=== PATIENT | male | born 1995 | race Caucasian/White ===

== ENCOUNTER 2016-09-15 13:51 | Emergency (ER) | payer BC ==
[~2016-09-15] VITALS: Ht 190.5 cm; Wt 104.3 kg
[~2016-09-15 13:51] MED LIST: AUGMENTIN 875-1 EACH PO; MEDROL 4MG. DOSE4 MG PO
--- NOTE | 2016-09-15 14:36 | Urgent Treatment Center Report ---
See Addendum History of Present Issue Date/Time Seen by Provider 09/15/16 1409 Visit Reason Pt arrived:Walked Presenting Problem:PT C/O RIGHT ANKLE PAIN. PT REPORTS A PAST ANKLE INJURY Location if Accident: Onset of symptoms date/time:/ or onset unknown for:MEDICAL HX UNKNOWN Have you (or family members/close friends) recently traveled outside the [place]? N If Yes, where/when: Have you had exposure to infectious disease within the past month? TB? Other? Specify: Patient states that he has had a previous injury to this ankle states that he was walking and the foot just gave out. State that he has been having pain in the ankle ever since so he started using as crutch to help get the weight off of foot and then came in here to get checked ALLERGIES Coded Allergies: No Known Allergies (02/06/16) Home Medications Active Scripts Methylprednisolone (Medrol Dose Sascha) 4 MG PO UD #1 SASCHA Prov: 02/06/16 Amoxicillin/Potassium Clav (Augmentin 875-125 Tablet) 1 EACH PO BID #20 TAB Prov: 02/06/16 History Medical History General CAD? No Angina: No [place]: No Hypertension? No Hyperlipidemia? No CHF? No DVT? No PE? No COPD? No Asthma? No Anemia? No GERD? No Gastric ulcers? No GI Bleed? No Hernia? No Thyroid Problems? No Hypothyroidism? No CVA? No Seizures? No Diabetes? No Renal Insuffiency? No UTI? No Stones? No BPH? No GB Disease: No Nephritic Syndrome? No Asplenia? No Hepatitis? No Sickle Cell Disease? No Arthritis? No Migraines? No Cataracts? No Glaucoma? No MRSA? No HIV? No TB? No Anxiety? No Depression? No Cancer? No More? No Immunization HX DT/Tetanus Unknown Surgical Hx Previous Surgery?N Social History Smoking Hx Smoker: Never Smoker Tobacco: No Alcohol Alcohol: No Review of Systems All Other Systems Reviewed and Negative Physical Exam Vital Signs Vital Signs Date Time Temp Pulse Resp B/P Pulse O2 O2 Flow FiO2 Ox Delivery Rate 09/15 1406 98.7 78 20 146/100 98 General Appearance normal appearance, WD/WN, no apparent distress, mild distress Respiratory Status Yes: trachea midline, chest symmetrical, non tender chest. No: respiratory distress. 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 No Results/Orders Orders Procedure Date/time Status UTC STABILIZE JOINT/AREA 09/15 1438 Active Departure Departure Disposition DC Home or Self Care(routine) Clinical Impression Primary Impression: Ankle pain Qualifiers: Laterality: right Chronicity: acute Qualified Code: M25.571 - Pain in right ankle and joints of right foot Condition STABLE Referrals Alonzo Rendon MD: Tomorrow-Call Office for appointment for foot/ankle pain ALESHIA ROBBINS, CHELSEA NAVARRETE: Tomorrow-Call Office For appointment for foot/ankle pain Patient Instructions DI for Foot Pain Additional Instructions *RICE, Rest the extremity, Ice 15-20 minutes 3-4 times daily, Compress- wear the sorin wrap as discussed as much as possible to help reduce swelling and pain, Elevate the extremity when at rest *Sorin wrap is for support and help control swelling, use it except in the shower. Be sure that is not to tight but not to loose either *Elevate when resting *Ibuprofen every 6-8 hours as needed for pain an inflammation. If need something more can take Tylenol in between doses of Ibuprofen to help Immediately follow up for new or worsening of symptoms, or no noticeable improvement over the next 3-5 days Discharge Counseling Counseled pt/family regarding diagnosis, test results, medications/RX, home care at 1440
--- NOTE | 2016-09-15 14:37 | RADIOLOGY REPORT PS360 ---
ANKLE-RT-3 VIEWS HISTORY: Right ankle pain PAIN; OLD [employer]ORTS INJURY ORDERING PHYSICIAN: SELVIN LEUNG APRN PATIENT AGE: 20 years COMPARISON: 08/02/2015 FINDINGS: No fracture or dislocation. No lytic or blastic change. There is normal mineralization.. The joint spaces are well-preserved. No significant degenerative/arthritic changes. No erosive changes evident. IMPRESSION: Negative right ankle, no acute finding
[2016-09-15 14:44] VITALS: BP 146/100
--- OUTSIDE RECORDS SUMMARY | 2016-09-22 02:57 | External Medical Summary Rpt ---
Author Author [employer] Organization [employer] Address Unknown Phone Unavailable Purpose Continuity of Care Document - through 2016
--- OUTSIDE RECORDS SUMMARY | 2016-09-22 02:57 | External Medical Summary Rpt ---
Author Author , Organization [employer] Address Unknown Phone Unavailable Purpose Continuity of Care Document - through 2016 Problems Code Diagnosis DOS Provider Status M70.20 OLECRANON BURSITIS, UNSPECIFIED ELBOW
--- OUTSIDE RECORDS SUMMARY | 2016-09-22 02:57 | External Medical Summary Rpt ---
Author Author ANGEL Avery, ANGEL [employer] Organization [employer] Address Unknown Phone Unavailable
--- OUTSIDE RECORDS SUMMARY | 2016-09-22 02:57 | External Medical Summary Rpt ---
Author Author , Organization [employer] Address Unknown Phone Unavailable Purpose Continuity of Care Document - 11-29-1998 through 2016 Immunization Name Date Route CVX Reacti Commen Provid Is Given on t er Refuse d Influe Histor KHAFAG No nza2016 ical I P-Free Inform AYMAN ation - Source Unspec ified Td Histor H109 No (adult 2005 ical ), Inform adsorb ation ed - Source Unspec ified Hep B, Histor H109 No 1999 ical ped/ad Inform ol ation - Source Unspec ified Hep B, Histor H109 No adol 1998 ical High Inform Ris ation - Source Unspec ified Hep B, Histor H109 No adol 1998 ical High Inform Ris ation - Source Unspec ified MMR 3 Histor H109 No 1998 uscula ical r Inform ation - Source Unspec ified
== END 2016-09-15 14:48 | disposition home or self-care (01) ==
LOC: UTC 13:51
DX: M25.571 Pain in right ankle and joints of right foot (principal)

== ENCOUNTER 2017-03-03 15:24 | Emergency (ER) | payer BC ==
[~2017-03-03] VITALS: Ht 190.5 cm; Wt 99.8 kg
--- OUTSIDE RECORDS SUMMARY | 2017-03-03 15:30 | External Medical Summary Rpt | CCD ---
Author Author ANGEL Address Unknown Phone Purpose Continuity of Care Document - through 2016
--- OUTSIDE RECORDS SUMMARY | 2017-03-03 15:30 | External Medical Summary Rpt | CCD ---
Author Author , ANGEL Organization [employer] Address Unknown Phone [email or web address] Immunization Name Date Rout CVX Reac Dose Comm Prov Is Faci e tion ent ider Refu lity Give sed n Infl 02-0 140 0.5 Hist KHAF No RITE uenz 6-20 mL oric JOSE DAVID AID0 a, 17 al AYMA 3938 P-Fr Info N ee rmat ion - Sour ce Unsp ecif ied Td 07-2 9 999 Hist H109 No H109 (magaly 0-20 oric lt), 06 al Info adso rmat rbed ion - Sour ce Unsp ecif ied Hep 02-1 8 999 Hist H109 No H109 B, 4-20 oric ped/ 00 al adol Info rmat ion - Sour ce Unsp ecif ied Hep 09-1 42 999 Hist H109 No H109 B, 3-19 oric adol 99 al Info High rmat Ris ion - Sour ce Unsp ecif ied Hep 08-0 42 999 Hist H109 No H109 B, 6-19 oric adol 99 al Info High rmat Ris ion - Sour ce Unsp ecif ied MMR 08-0 Intr 3 999 Hist H109 No H109 6-19 amus oric 99 cula al r Info rmat ion - Sour ce Unsp ecif ied
--- OUTSIDE RECORDS SUMMARY | 2017-03-03 15:30 | External Medical Summary Rpt | CCD ---
Author Author , ANGEL Organization [employer] Address Unknown Phone [email or web address] Immunization Name Date Rout CVX Reac Dose [...]
[2017-03-03] MEDS ORDERED: OMNICEF 300 MG300 MG PO (15:51)
--- NOTE | 2017-03-03 15:52 | Urgent Treatment Center Report ---
History of Present Issue Date/Time Seen by Provider 03/03/17 1543 Visit Reason Pt arrived:Walked Presenting Problem:SORE THROAT X2 DAYS Location if Accident: Onset of symptoms date/time:/ or onset unknown for:MEDICAL HX UNKNOWN Have you (or family members/close friends) recently traveled outside the [place]? N If Yes, where/when: Have you had exposure to infectious disease within the past month? TB? Other? Specify: Patient state that he has not been feeling well for several days State that he has had sore throat for 2 days now that has continued to get worse State that his throat if very sore and hurts when he swallows today he noticed that he had some white patches on his left tonsil and thought he better come in and get checked for strep throat ALLERGIES Coded Allergies: No Known Allergies (02/06/16) Home Medications Active Scripts Methylprednisolone (Medrol Dose Sascha) 4 MG PO UD #1 SASCHA Prov: 02/06/16 Amoxicillin/Potassium Clav (Augmentin 875-125 Tablet) 1 EACH PO BID #20 TAB Prov: 02/06/16 History Medical History General CAD? No Angina: No [place]: No Hypertension? No Hyperlipidemia? No CHF? No DVT? No PE? No COPD? No Asthma? No Anemia? No GERD? No Gastric ulcers? No GI Bleed? No Hernia? No Thyroid Problems? No Hypothyroidism? No CVA? No Seizures? No Diabetes? No Renal Insuffiency? No UTI? No Stones? No BPH? No GB Disease: No Nephritic Syndrome? No Asplenia? No Hepatitis? No Sickle Cell Disease? No Arthritis? No Migraines? No Cataracts? No Glaucoma? No MRSA? No HIV? No TB? No Anxiety? No Depression? No Cancer? No More? No Immunization HX DT/Tetanus Unknown Surgical Hx Previous Surgery?N Social History Smoking Hx Smoker: Current Every Day Smoker Tobacco: No Alcohol Alcohol: No Review of Systems All Other Systems Reviewed and Negative ENT throat pain, throat swelling. Physical Exam Vital Signs Vital Signs Date Time Temp Pulse Resp B/P Pulse O2 O2 Flow FiO2 Ox Delivery Rate 03/03 1532 98.0 129 18 180/93 99 General Appearance normal appearance, WD/WN, no apparent distress Ear, Nose, Throat tonsillar exudate, tonsillar swelling Respiratory Status Yes: trachea midline, chest symmetrical, non tender chest. No: respiratory distress. Cardiovascular normal exam, regular rate/rhythm Neurologic alert, normal exam, oriented x 3 Medical Decision Making LABS/Meds/Orders Pt receiving controlled substance in ED? No Results/Orders Laboratory Tests 03/03/17 1538: Group A Strep Screen NOT DETECTED Orders Procedure Date/time Status [facility] STREP SCREEN 03/03 1538 Complete Progress [facility] Progress Notes Comment Patient strep test negative however patient symptoms and presentation indicates strep throat along with exudate noted on tonsils Departure Departure Time of Disposition 1550 Disposition DC Home or Self Care(routine) Clinical Impression Primary Impression: Upper respiratory infection Qualifiers: URI type: acute tonsillitis Pharyngitis/tonsillitis etiology: unspecified etiology Qualified Code: J03.90 - Acute tonsillitis, unspecified Condition STABLE Referrals Sina ROBBINS,Aleks (Family): 3 Days-Call Office if no improvement Patient Instructions Sore Throat Additional Instructions * Monitor Temp. Tylenol and/or Ibuprofen as needed. ER if fever is no less than 101 despite alternating Tylenol and Ibuprofen * Encourage fluids, water, Gatorade, powerade, pedialyte if /toddler/or child * Warm salt water gargles for throat irritation *Warm fluids *Sore throat lozenges *Sleep elevated *humidifier or vaporizer Lots of rest Increase fluids, water, Gatorade, powerade *Your throat swab was sent to lab for culture. Those results area typically sent to your primary care physician. Be sure to follow up in 2-3 days if no improvement so they can review those results and treat if necessary If you dont have primary care I recommend you get one, but in the mean time you will have to return to a walk in clinic Follow up IMMEDIATELY for new or worsening of symptoms OR no noticeable improvement over the next 48-72 hours. 911 immediately for any life threatening symptoms such as chest pain or difficulty breathing Discharge Counseling Counseled pt/family regarding diagnosis, test results, medications/RX, home care, follow up needs Prescriptions Current Visit Scripts CEFDINIR (Cefdinir) 300 MG PO BID #20 CAP 1 capsule twice daily for 10 days at 1551
[2017-03-03 16:02] VITALS: BP 180/75
== END 2017-03-03 16:03 | disposition home or self-care (01) ==
LOC: UTC 15:24
DX: J03.90 Acute tonsillitis, unspecified (principal); F17.210 Nicotine dependence, cigarettes, uncomplicated

== ENCOUNTER 2017-03-05 19:53 | Emergency (ER) | payer BC ==
[~2017-03-05] VITALS: Ht 190.5 cm; Wt 104.3 kg
[~2017-03-05 19:53] MED LIST changes: +OMNICEF 300 MG300 MG PO
--- OUTSIDE RECORDS SUMMARY | 2017-03-05 20:19 | External Medical Summary Rpt ---
Author Author ANGEL Avery, [employer] Organization [employer] Address Unknown Phone Unavailable Results Streptococcus pyogenes Ag [Presence] in Unspecified specimen Observa Value Referen Units Interpr Notes Date tion ce etation Range Strepto NOT NOTDETE No No LOT # Nov 8 coccus DETECTE CTED informa informa @[id number] pyogene D tion in tion in 2 EXP 3:38 PM s Ag source source DATE [Presen data data @ ce] in 12-27 Unspeci fied specime n
--- OUTSIDE RECORDS SUMMARY | 2017-03-05 20:19 | External Medical Summary Rpt ---
Author Author ANGEL Avery, [employer] Organization [employer] Address Unknown Phone Unavailable Results Streptococcus pyogenes Ag [Presence] in Unspecified specimen Observa Value Referen Units Interpr Notes Date tion ce etation Range Strepto NOT NOTDETE No No LOT # Nov 8 coccus DETECTE CTED informa informa @[id number] pyogene D tion in tion in 2 EXP 3:38 PM s Ag source source DATE [Presen data data @ ce] in 12-27 Unspeci fied specime n
--- OUTSIDE RECORDS SUMMARY | 2017-03-05 20:19 | External Medical Summary Rpt | CCD ---
Author Author , ANGEL ORTIZ Address Unknown Phone [email or web address] Purpose Continuity of Care Document - 03-03-2017 through 2016 Problems Code Diagnosis DOS Provider Status M70.20 OLECRANON BURSITIS, UNSPECIFIED ELBOW Results Labs Lab Lab Date Result Refere Interp Status Commen Order Detail nces retati t Range on Screening group A Streptococcus antigen (03-03-2017 15:38) Screeni NOT NOTDETE complet ng 0[address] ed group A 15:38 D NOT DETECTE Strepto D L coccus antigen Comment: LOT # @[id number] EXP DATE @2018-12-27 Streptococcus pyogenes Ag [Presence] in Unspecified specimen (03-03-2017 15:38) Strepto NOT NOTDETE complet coccus [address] pyogene 15:38 D s Ag [Presen ce] in Unspeci fied specime n
--- OUTSIDE RECORDS SUMMARY | 2017-03-05 20:19 | External Medical Summary Rpt | CCD ---
Author Author , ANGEL Organization [employer] Address Unknown Phone [email or web address] Immunization Name Date Rout CVX Reac Dose [...]
--- OUTSIDE RECORDS SUMMARY | 2017-03-05 20:19 | External Medical Summary Rpt | CCD ---
Author Author , ANGEL ORTIZ Address Unknown Phone [email or web address] Purpose Continuity of Care Document - 03-03-2017 [...] D L coccus antigen Comment: LOT # @[id number] EXP DATE @2018-12-27 Streptococcus pyogenes Ag [Presence] in Unspecified specimen (03-03-2017 15:38) Strepto NOT NOTDETE complet coccus [address] pyogene 15:38 D s Ag [Presen ce] in Unspeci fied specime n
--- OUTSIDE RECORDS SUMMARY | 2017-03-05 20:19 | External Medical Summary Rpt | CCD ---
Author Author , ANGEL Organization [employer] Address Unknown Phone [email or web address] Immunization Name Date Rout CVX Reac Dose [...]
--- NOTE | 2017-03-05 20:21 | Emergency Room Report ---
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 Y Clinical Suspician of Infection? N Mental Status: 1 - Regular (Normal Baseline) Sepsis Risk:Severe Sepsis Risk Have you (or family members/close friends) recently traveled outside the [place]? N If Yes, where/when: Have you had exposure to infectious disease within the past month? N TB? Other? Specify: Source patient, RN notes reviewed, family, old records Exam Limitations no limitations Comment pt with fever and sore throat with no cough or rash - pt was seen in [facility] and placed on abx a couple of days ago- pt with persistant sx with fever and posey Cardiac Chest Pain Chest pain indicative of cardiac No Timing/Duration this evening Severity moderate ALLERGIES Coded Allergies: No Known Allergies (02/06/16) Home Medications Active Scripts Methylprednisolone (Medrol Dose Sascha) 4 MG PO UD #1 SASCHA Prov: 02/06/16 Amoxicillin/Potassium Clav (Augmentin 875-125 Tablet) 1 EACH PO BID #20 TAB Prov: 02/06/16 History Medical History General CAD? No Angina: No [place]: No Hypertension? No Hyperlipidemia? No CHF? No DVT? No PE? No COPD? No Asthma? No Anemia? No GERD? No Gastric ulcers? No GI Bleed? No Hernia? No Thyroid Problems? No Hypothyroidism? No CVA? No Seizures? No Diabetes? No Renal Insuffiency? No End Stage Renal Disease? No UTI? No Stones? No BPH? No GB Disease: No Nephritic Syndrome? No Asplenia? No Hepatitis? No Sickle Cell Disease? No Arthritis? No Migraines? No Cataracts? No Glaucoma? No MRSA? No HIV? No TB? No Anxiety? No Depression? No Cancer? No More? No Immunization Hx Ped.Immunizations UTD Yes DT/Tetanus Unknown Surgical Hx Previous Surgery?N Social History Smoking Hx Smoker: Never Smoker Tobacco: No Alcohol Alcohol: No Drugs none Review of Systems All Other Systems Reviewed and Negative Constitutional see HPI, fever Eyes denies drainage ENT denies: ear discharge, epistaxis, throat pain. Respiratory denies cough, denies shortness of breath, denies wheezing Cardiovascular denies chest pain, denies syncope Gastrointestinal denies abdominal pain, denies diarrhea, denies vomiting Genitourinary denies: dysuria, frequency, hesitancy, hematuria. Musculoskeletal denies back pain, denies joint pain, denies neck pain Skin denies rash Psychiatric/Neurological see HPI, headache, denies seizure Physical Exam Vital Signs Vital Signs Date Time Temp Pulse Resp B/P Pulse O2 O2 Flow FiO2 Ox Delivery Rate 03/05 2059 20 03/05 2000 99.8 122 24 146/88 97 - WBC >12,000 or <4,000 or 10% bands? 2 or more SIRS Criteria Met? B/P:146/88 MAP:107 Creatinine >2.0? UA output<0.5ml/kg/hr for 2 hrs? Platelet count >100,000? Lactate >2.0mmol/1? INR >1.2 or PTT > than 60 sec? Evidence of Organ Dysfunction? Provider documented clinical suspician of infection? N Sepsis Criteria Count: 3 Sepsis Risk: Severe Sepsis Risk General Appearance no apparent distress Eye Exam - bilateral eye PERRL, bilateral eye EOMI Ear, Nose, Throat tonsillar exudate, tonsillar swelling Neck supple Respiratory Status No: respiratory distress. Lung Sounds bilateral: lungs clear. 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 No Results/Orders Laboratory Tests 03/05/17 2015: Sodium 136, Potassium 3.4 L, Chloride 99, Carbon Dioxide 28, BUN 11, Creatinine 0.9, Estimated Creat Clear 188, Estimated GFR (MDRD) 105, Glucose 115 H, Calcium 9.0, Total Bilirubin 0.6, AST 18, ALT 26, Alkaline Phosphatase 87, Total Protein 8.0, Albumin 3.7, Globulin 4.3 H, Albumin/Globulin Ratio 0.9 L, WBC 9.6, RBC 4.87, Hgb 13.9 L, Hct 40.4 L, MCV 83.1, RDW 12.2, Plt Count 236, MPV 7.2 L, Gran % 78.3, Gran # 7.5, Lymphocytes % 14.8, Monocytes % 5.2, Eosinophils % 1.3, Basophils % 0.4, Lymphocytes # 1.4, Monocytes # 0.5, Eosinophils # 0.1, Basophils # 0.0, PUBS MCHC 34.4, MCH 28.6, Monoscreen NEGATIVE Current Medication Orders Sig/Heidi Start time Last Medication Dose Route Stop Time Status Admin Acetaminophen 650 MG ONCE ONE 03/05 2200 AC PO 03/05 2201 Acetaminophen/ 1 SASCHA ONCE ONE 03/05 2200 AC Codeine Phosphate PO 03/05 2201 Ibuprofen 800 MG ONCE ONE 03/05 2200 AC PO 03/05 2201 Ceftriaxone Sodium 1 GM ONCE ONE 03/05 2100 DC 03/05 Sodium Chloride 50 ML IV 03/05 Ketorolac 30 MG ONCE ONE 03/05 2100 DC 03/05 Tromethamine IV 03/05 Methylprednisolone 125 MG ONCE ONE 03/05 2100 DC 03/05 Sodium Succinate IV 03/05 Ceftriaxone Sodium 0 .STK-MED ONE 03/05 2056 DC IV Methylprednisolone 0 .STK-MED ONE 03/05 2056 DC Sodium Succinate .ROUTE Sodium Chloride 50 ML .STK-MED ONE 03/05 2056 DC IV Ketorolac 0 .STK-MED ONE 03/05 2055 DC Tromethamine .ROUTE Sodium Chloride 10 ML PRN PRN 03/05 2030 AC IV 03/06 2025 Sodium Chloride 1,000 ML .Q1H1M 03/05 2030 DC 03/05 IV 03/05 Sodium Chloride 10 ML PRN PRN 03/05 2030 AC IV 03/06 2025 Sodium Chloride 1,000 ML .STK-MED ONE 03/05 2030 DC IV Orders Procedure Date/time Status IV SALINE LOCK 03/05 2025 Active CULTURE, BLOOD 03/05 2025 Active MONO SCREEN 03/05 2025 Complete COMPLETE METABOLIC PANEL 03/05 2025 Complete CBC WITH AUTO DIFF 03/05 2025 Complete Departure Departure Time of Disposition 2145 Disposition Still a Patient Clinical Impression Primary Impression: Pharyngitis Qualifiers: Pharyngitis/tonsillitis etiology: unspecified etiology Qualified Code: J02.9 - Acute pharyngitis, unspecified Condition STABLE Referrals Aleks Art MD (Family) discussed with dr art Patient Instructions DI for Pharyngitis/Tonsillopharyngitis -- Adult Additional Instructions fluids and use advil/tyenol and see pcp at 0930 in am Discharge Counseling Counseled pt/family regarding diagnosis, test results, medications/RX, follow up needs ED Critical Care Critical Care No at 2150
[2017-03-05 20:38] LABS: HEMOGLOBIN 13.9 g/dL (14.1-18.0); LYMPH # 1.4 K/mm3 (0.7-4.5); LYMPH % 14.8 % (10-50)
[2017-03-05 22:53] VITALS: BP 135/71
[2017-03-06] MEDS ORDERED: CEFDINIR300 MG PO (10:31)
== END 2017-03-05 23:48 | disposition still patient (30) ==
LOC: ER 19:53
PROVIDERS: Emergency Medicine
DX: J02.9 Acute pharyngitis, unspecified (principal)

== ENCOUNTER 2017-03-06 09:59 | Observation (INO) | payer BC ==
[~2017-03-06] VITALS: Ht 190.5 cm; Wt 116.6 kg
--- OUTSIDE RECORDS SUMMARY | 2017-03-06 10:01 | External Medical Summary Rpt | CCD ---
Author Author ANGEL Address Unknown Phone [email or web address] Purpose Continuity of Care Document - 03-03-2017 [...] D L coccus antigen Comment: LOT # @[id number] EXP DATE @2018-12-27
--- OUTSIDE RECORDS SUMMARY | 2017-03-06 10:01 | External Medical Summary Rpt | CCD ---
Author Author NAGEL Address Unknown Phone [email or web address] Purpose Continuity of Care Document - 03-03-2017 [...] D L coccus antigen Comment: LOT # @[id number] EXP DATE @2018-12-27
--- OUTSIDE RECORDS SUMMARY | 2017-03-06 10:02 | External Medical Summary Rpt | CCD ---
Demographics Preferred Language Palestinian Marital Status Unknown Baptist Affiliation Unknown Race Unknown Ethnic Group Unknown Author Author , ANGEL ORTIZ Address Unknown Phone Immunization Unable to retrieve immunization data due to connection failure with Immunization Registry. Please try again later.
--- OUTSIDE RECORDS SUMMARY | 2017-03-06 10:02 | External Medical Summary Rpt | CCD ---
Demographics Preferred Language Northern Irish Marital Status Unknown Muslim Affiliation Unknown Race Unknown Ethnic Group Unknown Author Author , ANGEL ORTIZ Address Unknown Phone Immunization Unable to retrieve immunization data due to connection failure with Immunization Registry. Please try again later.
[2017-03-06 10:31] VITALS: BP 131/87
[2017-03-06] MEDS ORDERED: CEFDINIR300 MG PO (10:31)
--- NOTE | 2017-03-06 12:19 | RADIOLOGY REPORT PS360 ---
CT HEAD-W/WO CONTRAST INDICATION: Severe headache, fever, HEADACHE X 6 DAYS FEVER ORDERING PHYSICIAN: Aleks Andino MD PATIENT AGE: 21 years COMPARISON: None TECHNIQUE: Axial images are obtained following the intravenous administration 100 mL's of Isovue 300. FINDINGS: No midline shift, mass effect, intracranial hemorrhage, hydrocephalus, or enhancing lesion evident. No intra or extra-axial mass. No large area of cortical infarction. Normal mckenzie-white matter differentiation. No acute calvarial abnormality. No sinus air-fluid level or mastoid effusion. IMPRESSION: Negative CT head without and with contrast. No acute intracranial findings.
--- NOTE | 2017-03-06 12:21 | RADIOLOGY REPORT PS360 ---
CHEST(2 VIEWS-NOT PORTABLE) HISTORY: fever ORDERING PHYSICIAN: Aleks Andino MD PATIENT AGE: 21 years COMPARISON: None available FINDINGS: The cardiomediastinal silhouette and pulmonary vascularity are within normal limits. Increased markings are present in both lung bases consistent with bibasilar atelectatic change. There is increased density in the infrahilar region on the lateral view likely in the right lower lobe consistent with pneumonia. Upper lobes are clear. No effusions. No acute bony anomalies. IMPRESSION: Bibasilar atelectatic change with suspected pneumonia in the right lung base medially. Recommend follow until clear.
[2017-03-06 12:34] LABS: HEMOGLOBIN 12.8 g/dL (14.1-18.0); LYMPH # 1.5 K/mm3 (0.7-4.5); LYMPH % 12.1 % (10-50)
[2017-03-06 12:44] LABS: CORONAVIRUS 229E NOT DETECTED (NOT DETECTE); CORONAVIRUS HKU 1 NOT DETECTED (NOT DETECTE); CORONAVIRUS NL63 NOT DETECTED (NOT DETECTE); CORONAVIRUS OC43 NOT DETECTED (NOT DETECTE); RHINOVIRUS/ENTEROVIRUS NOT DETECTED (NOT DETECTE)
[2017-03-06 15:30] VITALS: BP 161/82
[2017-03-06 16:55] VITALS: BP 161/82
[2017-03-06 17:11] LABS: URINE BILIRUBIN - DIPSTICK NEGATIVE (NEG); URINE BLOOD NEGATIVE (NEG)
--- NOTE | 2017-03-06 19:41 | HISTORY AND PHYSICAL REPORT ---
Demographics: Admit date: 03/06/17 Chief complaint: Fever with sore throat PRIMARY DIAGNOSIS: HEADACHE AND SORE THROAT Allergies: Coded Allergies: No Known Allergies (02/06/16) History of present illness: History of present illness: 21-year-old white male, otherwise healthy who over the past couple of days has been afflicted with a sore throat, fever and a headache. Went to urgent treatment center where rapid strep test was negative but because "his throat looked bad" was started on amoxicillin. Failed to improve and came back to the emergency department yesterday, given intravenous ceftriaxone, fluids and a dose of Solu-Medrol and felt much better and was discharged. Came back for follow-up with me this morning, temperature 101.1 degrees Fahrenheit, noted to have shotty lymphadenitis, tachycardia and evidence of dehydration, admitted to hospital given failed outpatient therapy for infectious pharyngitis and further workup. Other complaints include a headache in the frontal area, denied neck stiffness, rash, confusion or disorientation. Past medical history: Family HX Family Hx Insignificant Yes Immunization HX DT/Tetanus Unknown Flu 2015-FSN Pneumonia Never Had TB Test in last year No General CAD? No Angina: No [place]: No Hypertension? No Hyperlipidemia? No CHF? No DVT? No PE? No COPD? No Asthma? No Anemia? No GERD? No Gastric ulcers? No GI Bleed? No Hernia? No Thyroid Problems? No Hypothyroidism? No CVA? No Seizures? No Diabetes? No Renal Insuffiency? No UTI? No Stones? No BPH? No GB Disease: No Nephritic Syndrome? No Asplenia? No Hepatitis? No Sickle Cell Disease? No Arthritis? No Migraines? No Cataracts? No Glaucoma? No MRSA? No HIV? No TB? No Anxiety? No Depression? No Cancer? No More? No Past Surgical HX Previous Surgery?N Current home meds: Reported Medications Cefdinir 300 MG PO BID Social Hx: Smoking HX Are you/the child exposed to second-hand smoke: No Alcohol Alcohol: No Hx of Drug Use Drug Use? No Patien't marital status is single Patient's support system is good Comment: Lives with girlfriend Review of systems: Constitutional fever, malaise, weakness. Respiratory No: no symptoms reported. Cardiovascular No no symptoms reported Gastrointestinal/Abdominal nausea, poor appetite, poor fluid intake Genitourinary No: no symptoms reported. Musculoskeletal No: gout, joint pain, joint swelling, muscle pain, muscle stiffness, neck pain. Skin No: rash. Neurological Yes: headache. No: numbness, tingling, tremors, weakness, parasthesia. Exam: Lab data for last 24 hours: Laboratory Tests 03/06/17 1230: Chlamy pneum (TEM-PCR) NOT DETECTED, Adenovirus (PCR) NOT DETECTED, B. pertussis DNA (PCR) NOT DETECTED, Coronavirus OC43 (PCR) NOT DETECTED, Coronavirus HKU1 ( PCR) NOT DETECTED, Coronavirus 229E (PCR) NOT DETECTED, Coronavirus NL63 (PCR) NOT DETECTED, Human Metapneumovir PCR NOT DETECTED, Influenza A (H1) PCR NOT DETECTED, Influ A (H1N1/09) PCR NOT DETECTED, Influenza A (H3) PCR NOT DETECTED, Influenza Type A (PCR) NOT DETECTED, Influenza Type B (PCR) NOT DETECTED, M. pneumoniae (PCR) NOT DETECTED, Parainfluenza 1 (PCR) NOT DETECTED, Parainfluenza 2 (PCR) NOT DETECTED, Parainfluenza 3 (PCR) NOT DETECTED, Parainfluenza 4 (PCR) NOT DETECTED, RSV (PCR) NOT DETECTED, Entero/Rhino (PCR) NOT DETECTED 03/06/17 1220: Sodium 136, Potassium 3.7, Chloride 102, Carbon Dioxide 26, BUN 10, Creatinine 0.8, Estimated Creat Clear 237 H, Estimated GFR (MDRD) 120, Glucose 125 H, Calcium 8.9, Total Bilirubin 0.5, AST 14 L, ALT 23, Alkaline Phosphatase 79, Total Protein 7.4, Albumin 3.3 L, Globulin 4.1 H, Albumin/Globulin Ratio 0.8 L, WBC 12.1 H, RBC 4.52 L, Hgb 12.8 L, Hct 37.7 L, MCV 83.6, RDW 12.2, Plt Count 269, MPV 7.1 L, Gran % 81.7 H, Gran # 9.9 H, Lymphocytes % 12.1, Monocytes % 5.5, Eosinophils % 0.2, Basophils % 0.4, Lymphocytes # 1.5, Monocytes # 0.7, Eosinophils # 0.0, Basophils # 0.1, PUBS MCHC 34.0, MCH 28.4 03/06/17 0600: Urine Color YELLOW, Urine Appearance CLEAR, Urine pH 6.5, Ur Specific [place] 1.010, Urine Protein NEGATIVE, Urine Ketones NEGATIVE, Urine Blood NEGATIVE, Urine Nitrate NEGATIVE, Urine Bilirubin NEGATIVE, Urine Urobilinogen 0.2, Ur Leukocyte Esterase NEGATIVE, Urine RBC NONE, Urine WBC NONE, Ur Squamous Epith Cells 5-10, Urine Bacteria OCC, Urine Glucose NEGATIVE Microbiology 03/06 1230 THROAT: Throat Culture - RECD 03/06 122 BLOOD: Anaerobic Blood Culture - RECD 03/06 122 BLOOD: Aerobic Blood Culture - RECD 03/06 1220 BLOOD: Anaerobic Blood Culture - RECD 03/06 122 BLOOD: Aerobic Blood Culture - RECD Admission vital signs: 1ST Vital Signs Result Date Time Pulse Ox 94 03/06 1031 B/P 131/87 03/06 1031 O2 Delivery ROOM AIR 03/06 1031 Temp 98.7 03/06 1031 Pulse 107 03/06 1031 Resp 20 03/06 1031 Exam General appearance: normal appearance, alert, awake Eyes: normal exam, anicteric ENT: significant redness of pharynx with tonsillar hypertrophy and swelling, grayish/green exudate. Tympanic membranes clear, some maxillary sinus tenderness Neck: supple (shotty lymphadenitis) Cardiovascular: normal exam Respiratory: normal exam, clear to auscultation ABD: normal exam, non-distended, normal bowel sounds Extremities: normal exam Musculoskeletal: normal exam Skin: normal exam, intact, normal color Neuro: normal exam, alert, no deficit Plan: Problem List 1. Pharyngitis 2. Headache 3. Acute febrile illness Plan: Plan will be to admit to hospital. CT scan of head given headache and fever. Check labs, viral PCR, chest x-ray for source of fever and along with urinalysis. Unasyn given failure of current therapy. at 1940
[2017-03-06 19:54] VITALS: BP 128/74
[2017-03-06 20:05] VITALS: BP 128/74
[2017-03-07 04:09] VITALS: BP 165/87
[2017-03-07 06:55] LABS: HEMOGLOBIN 12.4 g/dL (14.1-18.0); LYMPH # 1.3 K/mm3 (0.7-4.5); LYMPH % 11.3 % (10-50)
[2017-03-07 07:57] VITALS: BP 133/96
[2017-03-07] MEDS ORDERED: PREDNISONE 20MG20 MG PO (08:20)
[2017-03-07] MEDS ORDERED: TYLENOL WITH CO1 TA1 PO (08:20)
--- NOTE | 2017-03-07 08:25 | DISCHARGE SUMMARY STANDARD ---
Demographics Admit date: 03/06/17 Discharge date: 03/07/17 History of present illness History of present illness 21-year-old white male, otherwise healthy who over the past couple of days has been afflicted with a sore throat, fever and a headache. Went to urgent treatment center where rapid strep test was negative but because "his throat looked bad" was started on amoxicillin. Failed to improve and came back to the emergency department yesterday, given intravenous ceftriaxone, fluids and a dose of Solu-Medrol and felt much better and was discharged. Came back for follow-up with me this morning, temperature 101.1 degrees Fahrenheit, noted to have shotty lymphadenitis, tachycardia and evidence of dehydration, admitted to hospital given failed outpatient therapy for infectious pharyngitis and further workup. Other complaints include a headache in the frontal area, denied neck stiffness, rash, confusion or disorientation. Hospital Course Hospital Course: Patient was admitted, CT scan of head was done, labs were done, viral serologies were done, these were unrevealing for a cause of his pharyngitis/headache syndrome. However, the patient improved nicely on Unasyn and IV steroids. This morning he was eating well, drinking well, pain in vastly improved and his pharynx examined also improved. Cardiopulmonary assessment was unremarkable, no rash noted, normal sensorium. Patient will be discharged to finish up antibiotics, prednisone and short-term Tylenol 3 for severe headache pain was prescribed. We will follow up culture results as an outpatient. Discharge diagnoses Problem List 1. Pharyngitis 2. Headache 3. Acute febrile illness Medications Medications: Discharge meds are as noted. Follow up Follow up in office in: prn with: Aleks Andino MD at 0824
[2017-03-07 08:50] VITALS: BP 133/96
--- NOTE | 2017-03-07 08:54 | PHARMACY CLINIC NOTE ---
Patient Demographics Patient Demographics Admission date: 03/06/17 Date: 03/07/17 Time: 0854 Allergies Coded Allergies: No Known Allergies (02/06/16) HEIGHT- FT: 6 IN: 3.00 K.575 VTE General Information Labs: Laboratory Tests 03/07 03/06 0634 1220 Hematology Hgb (14.1 - 18.0 g/dL) 12.4 L 12.8 L Hct (42.0 - 52.0 %) 37.0 L 37.7 L Plt Count (142 - 424 K/mm3) 267 269 Disclaimer The following section includes nursing documentation that has been pulled in for pharmacy review. Patient's VTE score: 0 Patient's VTE Risk: VERY LOW RISK Clinical trial participant? No VTE prophylaxis NQF [id number] VTE prophylaxis ordered? Yes Type of prophylaxis/treatment: GUDELIA at 0854
[2017-03-08 14:40] LABS: EBV Ab VCA, IgM <36.0 U/mL (0.0-35.9); EBV Early Antigen Ab, IgG <9.0 U/mL (0.0-8.9); EBV Nuclear Antigen Ab, IgG <18.0 U/mL (0.0-17.9)
== END 2017-03-07 08:55 | disposition home or self-care (01) ==
LOC: 2ND 09:59
PROVIDERS: Internal Medicine Adolescent Medicine
DX: J02.9 Acute pharyngitis, unspecified (principal)
CPT/HCPCS: G0378